=== PATIENT | female | born 2000 | race Caucasian/White ===

== ENCOUNTER 2022-02-09 21:38 | Outpatient (REF) | payer OTHER, SELFPAY ==
[2022-02-09 22:39] LABS: Cholesterol* 187 mg/dL (90-199); Triglycerides* 71 mg/dL (40-149)
[2022-02-09 22:40] LABS: HDL Cholesterol* 93 mg/dL (>=50); LDL Cholesterol Calculated 80 mg/dL (<100)
[2022-02-09 22:41] LABS: Basophils Absolute Auto 0.03 K/uL (0.00-0.30); Basophils Percent Auto 0.4 % (0.0-3.0); Eosinophils Absolute Auto 0.08 K/uL (0.00-0.50); Eosinophils Percent Auto 1.2 % (0.0-7.0); HCG Qualitative* Negative (Negative); Hematocrit 42.5 % (33.0-51.0); Hemoglobin* 14.6 gm/dL (12.0-16.0); Immature Granulocytes Abs Auto 0.05 K/uL (0.00-0.30); Lymphocytes Percent Auto 31.9 % (20-44); Mean Corpuscular HGB Conc 34 gm/dL (32-36); Mean Corpuscular Hemoglobin 33 pg (26-34); Mean Corpuscular Volume 96 fL (80-100); Monocytes Percent Auto 7.2 % (0.0-11.0); Neutrophils Absolute Auto 4.04 K/uL (1.7-7.0); Neutrophils Percent Auto 58.6 % (42.0-72.0); Platelet Count* 292 K/uL (140-440); RDW Coefficient of Variation % 11.8 % (11.5-15.5); Red Blood Count 4.44 m/uL (4.00-5.20)
[2022-02-09 22:46] LABS: Slide Review Reflex No
[2022-02-09 23:02] LABS: HCG Quantitative* < 2.39 mIU/mL
[2022-02-13 13:53] LABS: Albumin* 4.5 g/dL (3.3-5.0)
[2022-02-13 13:56] LABS: Aspartate Amino Transferase* 41 U/L (12-35); Bilirubin Direct* 0.2 mg/dL (0.0-0.5); Bilirubin Total* 0.4 mg/dL (0.1-1.5); Total Protein* 7.4 g/dL (6.0-8.3)
[2022-02-13 13:57] LABS: Alanine Aminotransferase* 24 U/L (4-35); Alkaline Phosphatase* 80 U/L (40-150)
== END 2022-02-09 21:39 | disposition home or self-care (01) ==
LOC: LAB 21:38
PROVIDERS: Physician Assistant Medical; PCP Physician Assistant Medical
DX: L70.0 Acne vulgaris (principal)
CPT/HCPCS: 36415; 80061; 80074; 80076; 84702; 84703; 85025

== ENCOUNTER 2022-03-16 14:33 | Outpatient (REF) | payer OTHER, SELFPAY ==
[2022-03-16 16:21] LABS: Ur HCG Qualitative* Negative (Negative)
== END 2022-03-16 14:34 | disposition home or self-care (01) ==
LOC: NPINS 14:33
PROVIDERS: PCP Physician Assistant Medical; Visit Provider Physician Assistant Medical
DX: L70.0 Acne vulgaris (principal)
CPT/HCPCS: 81025

== ENCOUNTER 2022-04-16 22:03 | Outpatient (REF) | payer OTHER, SELFPAY ==
[2022-04-16 22:38] LABS: Ur HCG Qualitative* Negative (Negative)
[2022-04-16 22:59] LABS: Basophils Absolute Auto 0.03 K/uL (0.00-0.30); Basophils Percent Auto 0.4 % (0.0-3.0); Eosinophils Absolute Auto 0.13 K/uL (0.00-0.50); Eosinophils Percent Auto 1.9 % (0.0-7.0); Hematocrit 44.1 % (33.0-51.0); Hemoglobin* 14.9 gm/dL (12.0-16.0); Immature Granulocytes Abs Auto 0.03 K/uL (0.00-0.30); Lymphocytes Absolute Auto 2.48 K/uL (0.90-2.90); Lymphocytes Percent Auto 37.1 % (20-44); Mean Corpuscular HGB Conc 34 gm/dL (32-36); Mean Corpuscular Hemoglobin 33 pg (26-34); Mean Corpuscular Volume 97 fL (80-100); Monocytes Percent Auto 7.2 % (0.0-11.0); Neutrophils Absolute Auto 3.53 K/uL (1.7-7.0); Platelet Count* 314 K/uL (140-440); RDW Coefficient of Variation % 11.5 % (11.5-15.5); Red Blood Count 4.53 m/uL (4.00-5.20); White Blood Count* 6.68 K/uL (4.50-11.00)
[2022-04-16 23:11] LABS: Albumin* 4.7 g/dL (3.3-5.0)
[2022-04-16 23:13] LABS: Cholesterol* 190 mg/dL (90-199)
[2022-04-16 23:14] LABS: Alanine Aminotransferase* 27 U/L (4-35); Alkaline Phosphatase* 96 U/L (40-150); Bilirubin Direct* 0.2 mg/dL (0.0-0.5); Bilirubin Total* 0.5 mg/dL (0.1-1.5); HDL Cholesterol* 84 mg/dL (>=50); LDL Cholesterol Calculated 84 mg/dL (<100); Total Protein* 7.4 g/dL (6.0-8.3); Triglycerides* 109 mg/dL (40-149)
[2022-04-16 23:17] LABS: Slide Review Reflex No
[2022-04-16 23:28] LABS: Aspartate Amino Transferase* 38 U/L (12-35)
[2022-04-16 23:59] LABS: HCG Quantitative* < 2.39 mIU/mL
== END 2022-04-16 22:04 | disposition home or self-care (01) ==
LOC: NPINS 22:03
PROVIDERS: PCP Physician Assistant Medical; Visit Provider Physician Assistant Medical
DX: L70.0 Acne vulgaris (principal)
CPT/HCPCS: 80061; 80076; 81025; 84702; 85025

== ENCOUNTER 2022-05-19 19:59 | Outpatient (CLI) | payer OTHER, SELFPAY ==
[2022-05-19 20:56] LABS: HCG Qualitative Serum* Negative (Negative); HCG Qualitative* Negative (Negative)
[2022-05-19 21:18] LABS: Basophils Absolute Auto 0.04 K/uL (0.00-0.30); Basophils Percent Auto 0.6 % (0.0-3.0); Eosinophils Percent Auto 1.4 % (0.0-7.0); Hematocrit 44.5 % (33.0-51.0); Hemoglobin* 14.9 gm/dL (12.0-16.0); Immature Granulocytes Abs Auto 0.02 K/uL (0.00-0.30); Immature Granulocytes Pct Auto 0.3 %; Lymphocytes Absolute Auto 1.78 K/uL (0.90-2.90); Mean Corpuscular HGB Conc 34 gm/dL (32-36); Mean Corpuscular Hemoglobin 33 pg (26-34); Mean Corpuscular Volume 98 fL (80-100); Monocytes Percent Auto 6.6 % (0.0-11.0); Neutrophils Percent Auto 66.1 % (42.0-72.0); Platelet Count* 328 K/uL (140-440); RDW Coefficient of Variation % 11.5 % (11.5-15.5); Red Blood Count 4.54 m/uL (4.00-5.20); White Blood Count* 7.11 K/uL (4.50-11.00)
[2022-05-19 21:21] LABS: Slide Review Reflex No
[2022-05-19 21:28] LABS: Albumin* 4.5 g/dL (3.3-5.0)
[2022-05-19 21:31] LABS: Alkaline Phosphatase* 98 U/L (40-150); Aspartate Amino Transferase* 36 U/L (12-35); Bilirubin Direct* 0.2 mg/dL (0.0-0.5); Bilirubin Total* 0.3 mg/dL (0.1-1.5); Total Protein* 7.3 g/dL (6.0-8.3)
[2022-05-19 21:32] LABS: Alanine Aminotransferase* 29 U/L (4-35)
[2022-05-21 09:07] LABS: Cholesterol* 206 mg/dL (90-199)
[2022-05-21 09:08] LABS: HDL Cholesterol* 67 mg/dL (>=50); LDL Cholesterol Calculated 125 mg/dL (<100); Triglycerides* 70 mg/dL (40-149)
== END 2022-05-19 20:00 | disposition home or self-care (01) ==
LOC: LAB 20:01
PROVIDERS: PCP Physician Assistant Medical; Visit Provider Physician Assistant Medical
DX: L70.0 Acne vulgaris (principal)
CPT/HCPCS: 36415; 80061; 80076; 84703; 85025

== ENCOUNTER 2022-06-11 09:38 | Outpatient (CLI) | payer OTHER, SELFPAY ==
[2022-06-11 14:53] LABS: Chlamydia DNA Amplified* NOT DETECTED (No Detected); GC DNA Amplified* NOT DETECTED (No Detected)
== END 2022-06-11 09:39 | disposition home or self-care (01) ==
LOC: LKVREF 09:39
PROVIDERS: PCP Physician Assistant Medical; Visit Provider Physician Assistant Medical
DX: Z01.419 Encounter for gynecological examination (general) (routine) without abnormal findings (principal); Z11.3 Encounter for screening for infections with a predominantly sexual mode of transmission
CPT/HCPCS: 87491; 87591

== ENCOUNTER 2022-06-16 22:02 | Outpatient (REF) | payer OTHER, SELFPAY ==
[2022-06-16 22:36] LABS: HCG Qualitative Serum* Negative (Negative)
[2022-06-16 22:43] LABS: Albumin* 4.6 g/dL (3.3-5.0)
[2022-06-16 22:46] LABS: Aspartate Amino Transferase* 44 U/L (12-35); Bilirubin Direct* 0.4 mg/dL (0.0-0.5); Bilirubin Total* 0.7 mg/dL (0.1-1.5); Cholesterol* 185 mg/dL (90-199); Total Protein* 7.6 g/dL (6.0-8.3); Triglycerides* 115 mg/dL (40-149)
[2022-06-16 22:47] LABS: Alanine Aminotransferase* 27 U/L (4-35); Alkaline Phosphatase* 87 U/L (40-150); HDL Cholesterol* 71 mg/dL (>=50); LDL Cholesterol Calculated 91 mg/dL (<100)
[2022-06-16 22:51] LABS: Basophils Absolute Auto 0.03 K/uL (0.00-0.30); Basophils Percent Auto 0.5 % (0.0-3.0); Eosinophils Absolute Auto 0.12 K/uL (0.00-0.50); Eosinophils Percent Auto 2.1 % (0.0-7.0); Hematocrit 41.3 % (33.0-51.0); Immature Granulocytes Abs Auto 0.03 K/uL (0.00-0.30); Immature Granulocytes Pct Auto 0.5 %; Lymphocytes Absolute Auto 1.77 K/uL (0.90-2.90); Lymphocytes Percent Auto 30.7 % (20-44); Mean Corpuscular HGB Conc 34 gm/dL (32-36); Mean Corpuscular Hemoglobin 34 pg (26-34); Mean Corpuscular Volume 99 fL (80-100); Monocytes Percent Auto 7.1 % (0.0-11.0); Neutrophils Percent Auto 59.1 % (42.0-72.0); Platelet Count* 254 K/uL (140-440); RDW Coefficient of Variation % 11.8 % (11.5-15.5); Red Blood Count 4.17 m/uL (4.00-5.20); White Blood Count* 5.76 K/uL (4.50-11.00)
[2022-06-16 22:54] LABS: Slide Review Reflex No
[2022-06-17 19:01] LABS: Hepatitis C Virus Antibody* Negative (Negative)
[2022-06-17 19:03] LABS: HIV 1/2/P24 Combo Screen* Negative (Negative)
[2022-06-18 16:10] LABS: LDL Cholesterol, Direct 103 mg/dL (0-129)
== END 2022-06-16 22:03 | disposition home or self-care (01) ==
LOC: LAB 22:02
PROVIDERS: PCP Physician Assistant Medical; Visit Provider Physician Assistant Medical
DX: Z01.419 Encounter for gynecological examination (general) (routine) without abnormal findings (principal); L70.0 Acne vulgaris; R79.89 Other specified abnormal findings of blood chemistry; F41.9 Anxiety disorder, unspecified; Z11.3 Encounter for screening for infections with a predominantly sexual mode of transmission
CPT/HCPCS: 36415; 80061; 80076; 83721; 84703; 85025; 86703; 86803

== ENCOUNTER 2022-07-16 22:36 | Outpatient (REF) | payer OTHER, SELFPAY ==
[2022-07-16 23:04] LABS: HCG Qualitative Serum* Negative (Negative)
[2022-07-16 23:05] LABS: Ur HCG Qualitative* Negative (Negative)
[2022-07-16 23:09] LABS: Albumin* 4.4 g/dL (3.3-5.0)
[2022-07-16 23:11] LABS: Cholesterol* 181 mg/dL (90-199); Total Protein* 7.4 g/dL (6.0-8.3)
[2022-07-16 23:12] LABS: Alanine Aminotransferase* 27 U/L (4-35); Alkaline Phosphatase* 89 U/L (40-150); Aspartate Amino Transferase* 36 U/L (12-35); Bilirubin Direct* 0.3 mg/dL (0.0-0.5); Bilirubin Total* 0.3 mg/dL (0.1-1.5); HDL Cholesterol* 77 mg/dL (>=50); LDL Cholesterol Calculated 80 mg/dL (<100); Triglycerides* 122 mg/dL (40-149)
[2022-07-16 23:19] LABS: Basophils Absolute Auto 0.04 K/uL (0.00-0.30); Basophils Percent Auto 0.5 % (0.0-3.0); Eosinophils Absolute Auto 0.13 K/uL (0.00-0.50); Eosinophils Percent Auto 1.8 % (0.0-7.0); Hematocrit 42.6 % (33.0-51.0); Hemoglobin* 14.6 gm/dL (12.0-16.0); Immature Granulocytes Abs Auto 0.06 K/uL (0.00-0.30); Immature Granulocytes Pct Auto 0.8 %; Lymphocytes Absolute Auto 1.72 K/uL (0.90-2.90); Lymphocytes Percent Auto 23.4 % (20-44); Mean Corpuscular HGB Conc 34 gm/dL (32-36); Mean Corpuscular Hemoglobin 34 pg (26-34); Mean Corpuscular Volume 98 fL (80-100); Monocytes Percent Auto 6.9 % (0.0-11.0); Neutrophils Percent Auto 66.6 % (42.0-72.0); Platelet Count* 282 K/uL (140-440); RDW Coefficient of Variation % 11.4 % (11.5-15.5); Red Blood Count 4.34 m/uL (4.00-5.20); White Blood Count* 7.36 K/uL (4.50-11.00)
[2022-07-16 23:32] LABS: Slide Review Reflex No
== END 2022-07-16 22:37 | disposition home or self-care (01) ==
LOC: LAB 22:36
PROVIDERS: PCP Physician Assistant Medical; Visit Provider Physician Assistant Medical
DX: L70.0 Acne vulgaris (principal); K13.0 Diseases of lips
CPT/HCPCS: 36415; 80061; 80076; 81025; 84703; 85025

== ENCOUNTER 2022-08-14 22:57 | Outpatient (RCR) | payer OTHER, SELFPAY ==
[2022-08-15 02:44] LABS: Basophils Absolute Auto 0.03 K/uL (0.00-0.30); Basophils Percent Auto 0.3 % (0.0-3.0); Eosinophils Absolute Auto 0.15 K/uL (0.00-0.50); Eosinophils Percent Auto 1.4 % (0.0-7.0); Hematocrit 44.1 % (33.0-51.0); Hemoglobin* 14.6 gm/dL (12.0-16.0); Immature Granulocytes Abs Auto 0.01 K/uL (0.00-0.30); Immature Granulocytes Pct Auto 0.1 %; Lymphocytes Percent Auto 15.2 % (20-44); Mean Corpuscular HGB Conc 33 gm/dL (32-36); Mean Corpuscular Hemoglobin 33 pg (26-34); Mean Corpuscular Volume 99 fL (80-100); Monocytes Percent Auto 6.7 % (0.0-11.0); Neutrophils Percent Auto 76.3 % (42.0-72.0); Platelet Count* 242 K/uL (140-440); RDW Coefficient of Variation % 11.7 % (11.5-15.5); Red Blood Count 4.45 m/uL (4.00-5.20); White Blood Count* 10.49 K/uL (4.50-11.00)
[2022-08-15 02:46] LABS: Slide Review Reflex No
[2022-08-15 02:50] LABS: Ur HCG Qualitative* Negative (Negative)
[2022-08-15 02:52] LABS: Albumin* 4.2 g/dL (3.3-5.0)
[2022-08-15 02:55] LABS: Bilirubin Direct* 0.3 mg/dL (0.0-0.5); Bilirubin Total* 0.4 mg/dL (0.1-1.5); Cholesterol* 156 mg/dL (90-199); Total Protein* 7.3 g/dL (6.0-8.3); Triglycerides* 125 mg/dL (40-149)
[2022-08-15 02:56] LABS: Alanine Aminotransferase* 24 U/L (4-35); Alkaline Phosphatase* 110 U/L (40-150); Aspartate Amino Transferase* 31 U/L (12-35); HDL Cholesterol* 75 mg/dL (>=50); LDL Cholesterol Calculated 56 mg/dL (<100)
[2022-08-15 03:21] LABS: HCG Quantitative* < 2.39 mIU/mL
[2022-09-16 21:25] LABS: Basophils Absolute Auto 0.02 K/uL (0.00-0.30); Basophils Percent Auto 0.3 % (0.0-3.0); Eosinophils Absolute Auto 0.12 K/uL (0.00-0.50); Eosinophils Percent Auto 1.6 % (0.0-7.0); Hematocrit 43.4 % (33.0-51.0); Hemoglobin* 14.4 gm/dL (12.0-16.0); Immature Granulocytes Abs Auto 0.01 K/uL (0.00-0.30); Immature Granulocytes Pct Auto 0.1 %; Lymphocytes Absolute Auto 2.57 K/uL (0.90-2.90); Lymphocytes Percent Auto 34.8 % (20-44); Mean Corpuscular HGB Conc 33 gm/dL (32-36); Mean Corpuscular Hemoglobin 32 pg (26-34); Mean Corpuscular Volume 96 fL (80-100); Monocytes Percent Auto 6.2 % (0.0-11.0); Platelet Count* 299 K/uL (140-440); RDW Coefficient of Variation % 11.6 % (11.5-15.5); Slide Review Reflex No; White Blood Count* 7.38 K/uL (4.50-11.00)
[2022-09-16 21:26] LABS: Albumin* 4.2 g/dL (3.3-5.0)
[2022-09-16 21:27] LABS: Ur HCG Qualitative* Negative (Negative)
[2022-09-16 21:29] LABS: Bilirubin Direct* 0.1 mg/dL (0.0-0.5); Bilirubin Total* 0.3 mg/dL (0.1-1.5); Cholesterol* 191 mg/dL (90-199); Total Protein* 7.4 g/dL (6.0-8.3); Triglycerides* 152 mg/dL (40-149)
[2022-09-16 21:30] LABS: Alanine Aminotransferase* 25 U/L (4-35); Alkaline Phosphatase* 124 U/L (40-150); Aspartate Amino Transferase* 30 U/L (12-35); HDL Cholesterol* 67 mg/dL (>=50); LDL Cholesterol Calculated 94 mg/dL (<100)
[2022-09-16 21:52] LABS: HCG Quantitative* < 2.39 mIU/mL
== END 2023-07-21 14:36 | disposition home or self-care (01) ==
LOC: NPINS 22:57
PROVIDERS: PCP Physician Assistant Medical; Visit Provider Physician Assistant Medical
DX: L70.0 Acne vulgaris (principal)
CPT/HCPCS: 80061; 80076; 81025; 84702; 84704; 85025

== ENCOUNTER 2023-05-12 13:44 | Outpatient (CLI) | payer OTHER, SELFPAY ==
[2023-05-12 23:24] LABS: Chlamydia DNA Amplified* NOT DETECTED (No Detected); GC DNA Amplified* NOT DETECTED (No Detected)
== END 2023-05-12 13:45 | disposition home or self-care (01) ==
LOC: LKVREF 13:44
PROVIDERS: PCP Physician Assistant Medical; Visit Provider Physician Assistant Medical
DX: Z11.3 Encounter for screening for infections with a predominantly sexual mode of transmission (principal)
CPT/HCPCS: 87491; 87591

== ENCOUNTER 2024-05-20 09:37 | Outpatient (CLI) | payer OTHER, SELFPAY | END 2024-05-20 09:38 | disposition home or self-care (01) | LOC: NFLDREF 16:45 | PROVIDERS: PCP Physician Assistant Medical; Referring Provider Physician Assistant Medical; Visit Provider Family Medicine | DX: N30.00 Acute cystitis without hematuria (principal); N34.3 Urethral syndrome, unspecified; N39.0 Urinary tract infection, site not specified | CPT/HCPCS: 87086 ==

== ENCOUNTER 2025-06-12 13:22 | Outpatient (CLI) | payer OTHER, SELFPAY ==
[2025-06-12 23:18] LABS: Chlamydia DNA Amplified* NOT DETECTED (No Detected); GC DNA Amplified* NOT DETECTED (No Detected)
== END 2025-06-12 13:23 | disposition home or self-care (01) ==
PROVIDERS: PCP Physician Assistant Medical; Visit Provider Family Medicine
DX: Z00.00 Encounter for general adult medical examination without abnormal findings (principal); Z11.3 Encounter for screening for infections with a predominantly sexual mode of transmission; Z13.6 Encounter for screening for cardiovascular disorders
CPT/HCPCS: 80053; 80061; 86703; 86706; 86780; 86803; 87340; 87491; 87591